=== PATIENT | female | born 1985 | race Two or more races ===

== ENCOUNTER 2025-01-15 20:41 | Emergency (ER) | payer OTHER ==
[~2025-01-15] VITALS: Ht 154.9 cm; Wt 69.4 kg
[2025-01-15] MEDS ORDERED: KETOROLAC TROMETHAMINE 30 MG VIAL IM STA (22:54)
[2025-01-16] MEDS ORDERED: KETOROLAC TROMETHAMINE 30 MG VIAL ONE (00:19)
== END 2025-01-16 00:42 | disposition home or self-care (01) ==
LOC: ER 21:05
DX: M75.02 Adhesive capsulitis of left shoulder (principal)